=== PATIENT | female | born 1955 | race Caucasian/White ===

== ENCOUNTER 2017-02-01 08:39 | Emergency (ER) | payer OTHER, MEDICAID ==
[~2017-02-01] VITALS: Ht 157.5 cm; Wt 59.0 kg
[~2017-02-01 08:39] MED LIST: CLON1TAB PO; DEXT20CA PO; GABA-494 PO; LEV50T PO; LURA120T PO; OMEP20CA74 PO; OXCA300T26 PO; PRA1C PO; TRAZ100T2 PO; VENL75TA43 PO
[2017-02-01] MEDS ORDERED: LORazepam 0.5 MG TAB ONE (09:04)
[2017-02-01] MEDS ORDERED: LORazepam 0.5 MG TAB PO ONE (09:15)
[2017-02-01] MEDS ORDERED: OLANZapine 5 MG TAB ONE (09:19)
[2017-02-01] MEDS ORDERED: OLANZapine 5 MG TAB PO ONE (09:30)
[2017-02-01 10:16] LABS: Basophils # (auto) 0.1 uL; Basophils % (auto) 0.4 % (0.0-2.0); Eosinophils # (auto) 0 uL; Eosinophils % (auto) 0.1 % (0.0-7.0); Hematocrit 45.1 % (36.0-46.0); Hemoglobin 15.1 g/dL (12.2-16.2); Lymphocytes # (auto) 1.6 uL; Lymphocytes % (auto) 10.6 % (10.0-50.0); Mean Corpuscular Hemoglobin 28.7 pg (28.0-32.0); Mean Corpuscular Hgb Conc. 33.4 g/dL (32.0-36.0); Mean Platelet Volume 8.8 fL (6.9-10.8); Monocytes % (auto) 6.5 % (0.0-12.0); Neutrophils # (auto) 12.7 uL; Neutrophils % (auto) 82.4 % (37.0-80.0); Nucleated Red Blood Cells % 0.1 %; Platelet Count (auto) 344 10^3/uL (140-450); Red Cell Distribution Width 14.3 % (11.8-14.3); White Blood Cell 15.4 10^3/uL (4.4-10.8)
[2017-02-01 10:39] LABS: Albumin 4.3 g/dL (3.4-5.0); Alkaline Phosphatase 72 U/L (45-117); Anion Gap 9 (5-15); Aspartate Aminotransferase 17 U/L (15-37); BUN/Creatinine Ratio 13.6; Bilirubin, Total 0.8 mg/dL (0.2-1.0); Blood Urea Nitrogen 14 mg/dL (7-18); Calcium 9.6 mg/dL (8.5-10.1); Carbon Dioxide 31 mmol/L (21-32); Chloride 99 mmol/L (98-107); GFR African American 71 mL/min; GFR Non-African American 58 mL/min; Glucose 135 mg/dL (74-106); Sodium 139 mmol/L (136-145); Total Protein 8.3 g/dL (6.4-8.2)
[2017-02-01 10:45] LABS: Potassium 2.6 mmol/L (3.5-5.1)
[2017-02-01] MEDS ORDERED: POTASSIUM CHL 10% (20 MEQ/15ML) 15ml ORAL SOLN PO ONE (11:00)
[2017-02-01] MEDS ORDERED: HYDROcodone-ACET 5/325MG TAB PO ONE (12:15)
[2017-02-01] MEDS ORDERED: LORazepam 2MG/ML-1ML VIAL IV ONE ×2 (12:15→14:15)
[2017-02-01 12:26] VITALS: BP 141/87
[2017-02-01] MEDS ORDERED: LORazepam 2MG/ML-1ML VIAL ONE (14:06)
== END 2017-02-01 17:08 | disposition home or self-care (01) ==
LOC: EDBD 08:39 → ER 08:39
DX: F41.9 Anxiety disorder, unspecified (principal); F32.9 Major depressive disorder, single episode, unspecified; G89.29 Other chronic pain; M54.9 Dorsalgia, unspecified; R41.82 Altered mental status, unspecified; F17.210 Nicotine dependence, cigarettes, uncomplicated
CPT/HCPCS: 36415; 71010; 80053; 80320; 85025; 93005; 96374; 96376; 99285; J2060